=== PATIENT | female | born 1985 | race Caucasian/White ===

== ENCOUNTER 2019-01-27 11:13 | Day surgery (SDC) | payer MEDICAID ==
[~2019-01-27 11:13] MED LIST: CEFAZOLIN 2 GM/50 ML (PMX) 50 ML IVPB; LACTATED RINGER'S 1,000 ML IV
[2019-01-27 12:14] LABS: ADD MAN DIFF? NO
[2019-01-27 12:17] LABS: WHITE BLOOD COUNT 7.3 10^3/ul (4.8-10.8)
[2019-01-27 12:17] LABS: BASOPHIL # 0.1 10^3/ul (0.0-0.1); EOSINOPHILS # 0.1 10^3/ul (0.0-0.5); EOSINOPHILS % 1.6 % (0.0-7.0); HEMATOCRIT 43.6 % (37.0-47.0); HEMOGLOBIN 14.9 g/dl (12.0-16.0); LYMPHOCYTES # 2.4 10^3/ul (0.8-2.9); LYMPHOCYTES % 32.4 % (15.0-51.0); MEAN CORPUSCULAR HGB CONC 34.2 g/dl (32.0-37.0); MEAN CORPUSCULAR VOLUME 93.6 fl (82.0-101.0); MEAN PLATELET VOLUME 11.4 fl (7.4-10.4); MONOCYTE # 0.5 10^3/ul (0.3-0.9); MONOCYTES % 6.6 % (0.0-11.0); NEUTROPHIL # 4.2 10^3/ul (1.6-7.5); PLATELET COUNT 217 10^3/UL (140-415); RED BLOOD COUNT 4.66 10^6/ul (4.20-5.40); RED CELL DISTRIBUTION WIDTH 12.1 % (11.5-14.5)
[2019-01-27 12:40] LABS: INR 0.91; PROTIME 12.4 Sec (11.9-14.9)
[2019-01-27 12:41] LABS: PARTIAL THROMBOPLASTIN TIME 28.7 Sec (23.0-35.0)
[2019-01-27] MEDS ORDERED: MIDAZOLAM 1 MG/ML 2 ML INJ IV (13:30)
[2019-01-27] MEDS ORDERED: ONDANSETRON 4 MG INJ IV (13:30)
[2019-01-27] MEDS ORDERED: hydrALAzine 20 MG INJ IV (13:30)
[2019-01-27] MEDS ORDERED: LABETALOL HCL 20MG INJ IV (13:30)
[2019-01-27] MEDS ORDERED: METOCLOPRAMIDE 10 MG INJ IV (13:30)
[2019-01-27] MEDS ORDERED: EPHEDrine 25 MG/5 ML SYG IV (13:30)
[2019-01-27] MEDS ORDERED: PROPOFOL 20 ML (13:51)
[2019-01-27] MEDS ORDERED: ROCURONIUM 50 MG INJ (13:51)
[2019-01-27] MEDS ORDERED: LIDOCAINE 100 MG SYRINGE (13:51)
[2019-01-27] MEDS ORDERED: FENTAnyl 50 MCG/ML VIAL (13:51)
[2019-01-27] MEDS ORDERED: MIDAZOLAM 1 MG/ML 2 ML INJ (13:51)
[2019-01-27] MEDS ORDERED: DEXAMETHASONE 4 MG/ML 5 ML INJ (14:14)
[2019-01-27] MEDS ORDERED: ONDANSETRON 4 MG INJ (14:14)
[2019-01-27] MEDS: BUPIVACAINE 0.5%/EPI (SDV) 30 ML INJ (14:16)
[2019-01-27] MEDS: MEPERIDINE 25 MG INJ IV (15:52)
[2019-01-27] MEDS: HYDROmorphONE 1 MG/5 ML IV SYRINGE IV (15:53)
[2019-01-27] MEDS: HYDROCODONE/APAP (5/325) TAB PO (17:08)
== END 2019-01-27 17:18 | disposition home or self-care (01) ==
LOC: SDS 11:13
DX: Z30.2 Encounter for sterilization (principal); K21.9 Gastro-esophageal reflux disease without esophagitis; E66.9 Obesity, unspecified; Z87.891 Personal history of nicotine dependence
CPT/HCPCS: 58661; 85025; 85610; 85730; 88302